=== PATIENT | female | born 1960 | race Asian ===

== ENCOUNTER 2020-08-08 17:55 | Emergency (ER) | payer OTHER, SELFPAY ==
[~2020-08-08] VITALS: Ht 165.1 cm; Wt 84.0 kg
[2020-08-08 19:19] LABS: ALBUMIN 2.2 g/dL (3.4-5.0); ANION GAP 7 mmol/L (5-15); CALCIUM 7.9 mg/dL (8.5-10.1); CHLORIDE 101 mmol/L (98-107)
--- NOTE | 2020-08-08 19:20 | NUR ---
not in lobby
[2020-08-08 19:24] LABS: ALANINE AMINOTRANSFERASE 33 U/L (12-78); ALKALINE PHOSPHATASE 103 U/L (45-117); BILIRUBIN,TOTAL 1.1 mg/dL (0.2-1.0); CREATININE 0.94 mg/dL (0.55-1.02); TOTAL PROTEIN 7.2 g/dL (6.4-8.2); TROPONIN I < 0.015 ng/mL (0.000-0.045)
[2020-08-08 19:35] LABS: BASOPHILS % (AUTO) 1 % (0-1); EOSINOPHILS % (AUTO) 3 % (1-7); LYMPHOCYTES % (AUTO) 23 % (22-44); MEAN CORPUSCULAR HEMOGLOBIN 31.4 pg (27.0-34.8); MEAN CORPUSCULAR HGB CONC 33.7 g/dL (32.4-35.8); MEAN PLATELET VOLUME 6.9 fL (7.4-10.4); MONOCYTES % (AUTO) 17 % (2-9); NEUTROPHILS % (AUTO) 56 % (42-75); PLATELET COUNT 218 x10^3/uL (130-400); RED BLOOD COUNT 4.41 x10^6/uL (3.82-5.3)
[2020-08-08 20:18] LABS: MD SCAN
[2020-08-08 20:41] LABS: MICROSCOPIC AUTO
[2020-08-08 22:00] VITALS: BP 149/78
== END 2020-08-08 22:02 | disposition home or self-care (01) ==
LOC: ED 20:49
DX: R06.00 Dyspnea, unspecified (principal); R60.0 Localized edema; R80.9 Proteinuria, unspecified; R07.9 Chest pain, unspecified; E11.9 Type 2 diabetes mellitus without complications; I25.10 Atherosclerotic heart disease of native coronary artery without angina pectoris
CPT/HCPCS: 36415; 71045; 80053; 81001; 83690; 83880; 84484; 85025; 93005; 93970; 99285

== ENCOUNTER 2021-03-09 15:11 | Emergency (ER) | payer OTHER ==
[~2021-03-09] VITALS: Ht 165.1 cm; Wt 66.8 kg
--- NOTE | 2021-03-09 15:30 | NUR ---
ASSUMED CARE OF PATIENT. PATIENT REPORTS SHE HAD COVID LAST NOV, SINCE PT HAS BEEN GETTING DIZZY AND FALLING. HER PRIMARY IS AWARE. PT REPORTS THIS MORNING SHE GOT DIZZY AND FELL. PT C/O LEFT RIB PAIN. VS STABLE. NO ACUTE DISTRESS NOTED. CALL LIGHT IN PLACE. WILL CONTINUE TO MONITOR.
[2021-03-09] MEDS ORDERED: OXYBUTYNIN (15:39)
[2021-03-09] MEDS ORDERED: METOPROLOL PO (15:39)
[2021-03-09] MEDS ORDERED: AMIT10TA PO (15:40)
[2021-03-09] MEDS ORDERED: INSU100V8 SQ (15:41)
[2021-03-09] MEDS ORDERED: ASPI-963 PO (15:41)
[2021-03-09] MEDS ORDERED: ATORVASTATIN (15:42)
[2021-03-09] MEDS ORDERED: LEVO125T5 PO (15:42)
[2021-03-09] MEDS ORDERED: SODIUM CHLORIDE FLUSH 10ML SYR IVF ONE (16:00)
[2021-03-09 16:20] LABS: BASOPHILS % (AUTO) 0 % (0-1); EOSINOPHILS % (AUTO) 3 % (1-7); LYMPHOCYTES % (AUTO) 19 % (22-44); MEAN CORPUSCULAR HEMOGLOBIN 31.6 pg (27.0-34.8); MEAN CORPUSCULAR HGB CONC 33.9 g/dL (32.4-35.8); MEAN PLATELET VOLUME 7.4 fL (7.4-10.4); MONOCYTES % (AUTO) 9 % (2-9); NEUTROPHILS % (AUTO) 69 % (42-75); PLATELET COUNT 147 x10^3/uL (130-400); RED BLOOD COUNT 3.63 x10^6/uL (3.82-5.3); RED CELL DISTRIBUTION WIDTH 13.3 % (9.6-15.2)
[2021-03-09 16:33] LABS: ALBUMIN 2.6 g/dL (3.4-5.0); ANION GAP 5 mmol/L (5-15); CALCIUM 8.8 mg/dL (8.5-10.1); CHLORIDE 95 mmol/L (98-107)
[2021-03-09 16:36] LABS: ALANINE AMINOTRANSFERASE 47 U/L (12-78); ALKALINE PHOSPHATASE 136 U/L (45-117); BILIRUBIN,TOTAL 0.5 mg/dL (0.2-1.0); CREATININE 1.51 mg/dL (0.55-1.02); TOTAL PROTEIN 7.1 g/dL (6.4-8.2)
--- NOTE | 2021-03-09 17:14 | NUR ---
PT AMBULATED TO BATHROOM, UA SENT. PT REPORTS SHE HAS BEEN OUT OF HER INSULIN X2 WEEKS. VS STABLE. CALL LIGHT IN PLACE. WILL CONTINUE TO MONITOR.
[2021-03-09] MEDS ORDERED: SODIUM CHLORIDE 0.9% 1,000ML IVBOLUS ONE (17:30)
[2021-03-09 17:34] LABS: MICROSCOPIC AUTO
[2021-03-09 17:57] LABS: PH, VENOUS 7.314 pH (7.320-7.420)
[2021-03-09 17:58] LABS: O2 FLOW ROOM AIR L/min
--- NOTE | 2021-03-09 18:06 | NUR ---
VS STABLE. CALL LIGHT IN PLACE. NO ACUTE DISTRESS NOTED. WILL CONTINUE TO MONITOR.
--- NOTE | 2021-03-09 18:17 | NUR ---
REPORT GIVEN TO OKSANA KLEIN FOR BREAK
[2021-03-09 18:26] LABS: ACETONE, SERUM Negative (Negative)
[2021-03-09] MEDS ORDERED: OMNIPAQUE 350 MG/ML, 100ML BOTTLE ONE (18:37)
[2021-03-09 18:57] VITALS: BP 170/85
--- NOTE | 2021-03-09 18:57 | NUR ---
REPORT GIVEN TO OKSANA WATKINS
--- NOTE | 2021-03-09 19:08 | NUR ---
PT RESTING COMFORTABLY AND IN NO ACUTE DISTRESS. 2ND BAG OF IVF INFUSING, AND WAITING FOR IT TO FINISH AND WILL RECHECK A FSBS.
--- NOTE | 2021-03-09 19:42 | NUR ---
2ND BAG OF NS IVF COMPLETE, AND REPEAT FSBS = 436MG/DL AND MADE AWARE.
[2021-03-09] MEDS ORDERED: INSULIN REGULAR 100 UNITS/ML, 3ML VIAL IV ONE (20:30)
[2021-03-09] MEDS ORDERED: INSULIN LISPRO 100 UNITS/ML, PEN ONE (20:31)
--- NOTE | 2021-03-09 21:14 | NUR ---
FOLLOW UP GLUCOSE CHECKED AND IS 319MG/DL, AND MD ADVISED.
--- NOTE | 2021-03-09 21:33 | NUR ---
F/U AND D/C INSTRUCTIONS WITH PRESCRIPTIONS GIVEN TO PT AND SHE V/U. PT AMBULATORY WITHOUT INCIDENT. AND AMBULATED TO DISCHARGE DESK.
== END 2021-03-09 21:35 | disposition home or self-care (01) ==
LOC: ED 16:18
DX: S22.31XA Fracture of one rib, right side, initial encounter for closed fracture (principal); R10.11 Right upper quadrant pain; E11.65 Type 2 diabetes mellitus with hyperglycemia; W18.30XA Fall on same level, unspecified, initial encounter; Y93.89 Activity, other specified; Y92.009 Unspecified place in unspecified non-institutional (private) residence as the place of occurrence of the external cause; Y99.8 Other external cause status
CPT/HCPCS: 36415; 71250; 74177; 80053; 81001; 82010; 82800; 82803; 82962; 85025; 87086; 93005; 96361; 96374; 99285; J1815; J7030; Q9967